=== PATIENT | female | born 1995 | race Caucasian/White ===

== ENCOUNTER → 2020-08-11 13:27 | Outpatient (CLI) | payer OTHER, SELFPAY ==
[2020-08-11 09:43] VITALS: BMI 24.3
[2020-08-15 17:18] LABS: HPV Reflexed? NOT INDICATED
== END ==
PROVIDERS: Visit Provider Obstetrics & Gynecology
DX: Z12.4 Encounter for screening for malignant neoplasm of cervix (principal)
CPT/HCPCS: 88175; G0145

== ENCOUNTER → 2021-09-04 07:39 | Outpatient (CLI) | payer OTHER, SELFPAY ==
--- NOTE | 2021-09-04 07:57 | US_ITS ---
STUDY: ULTRASOUND OF THE FEMALE PELVIS - COMPLETE REASON FOR EXAM: Female, 26 years old. Check IUD placement LMP: 08/07/2021. TECHNIQUE: Transabdominal and Transvaginal TECHNICAL QUALITY: Adequate. COMPARISON: None. FINDINGS: The uterus is anteverted and is in a midline position. The uterus measures 8.8 cm x 5.5 cm x 4.0 cm. Normal uterine cervix. The endometrium measures 2.7 mm in thickness, and is hyperechoic. There is no demonstrated endometrial mass. There is no demonstrated myometrial mass. I.U.D. - The patient does have an I.U.D. The right ovary is visualized. The right ovary measures 4 cm x 2.1 cm x 1.6 cm. There is no right ovarian cyst or ovarian mass. There is no visualized right adnexal mass or complex lesion. There is normal arterial and normal venous vascularity. The left ovary is visualized. The left ovary measures 3.2 cm x 2.9 cm x 2 cm. There is a dominant follicle in the left ovary measuring 1.8 cm x 1.7 cm x 1.4 cm. There is no visualized left adnexal mass or complex lesion. There is normal arterial and normal venous vascularity. Trace amount of free fluid adjacent to the left ovary. The pre void volume of the bladder was 207 ml. US/Transvaginal Non- IMPRESSION: IUD is within the uterus. 1.8 cm x 1.7 cm x 1.4 cm dominant follicle in the left ovary. Electronically Signed: Mario Bahena MD at 13:53 EDT , Service support ,
--- NOTE | 2021-09-04 07:57 | US_ITS ---
STUDY: ULTRASOUND OF THE FEMALE PELVIS - COMPLETE REASON FOR EXAM: Female, 26 years old. Check IUD placement LMP: 08/07/2021. TECHNIQUE: Transabdominal and Transvaginal TECHNICAL QUALITY: Adequate. COMPARISON: None. FINDINGS: The uterus is anteverted and is in a midline position. The uterus measures 8.8 cm x 5.5 cm x 4.0 cm. Normal uterine cervix. The endometrium measures 2.7 mm in thickness, and is hyperechoic. There is no demonstrated endometrial mass. There is no demonstrated myometrial mass. I.U.D. - The patient does have an I.U.D. The right ovary is visualized. The right ovary measures 4 cm x 2.1 cm x 1.6 cm. There is no right ovarian cyst or ovarian mass. There is no visualized right adnexal mass or complex lesion. There is normal arterial and normal venous vascularity. The left ovary is visualized. The left ovary measures 3.2 cm x 2.9 cm x 2 cm. There is a dominant follicle in the left ovary measuring 1.8 cm x 1.7 cm x 1.4 cm. There is no visualized left adnexal mass or complex lesion. There is normal arterial and normal venous vascularity. Trace amount of free fluid adjacent to the left ovary. The pre void volume of the bladder was 207 ml. US/Pelvic (Non ) IMPRESSION: IUD is within the uterus. 1.8 cm x 1.7 cm x 1.4 cm dominant follicle in the left ovary. Electronically Signed: Mario Bahena MD at 13:53 EDT , Service support ,
== END ==
PROVIDERS: Referring Provider Nurse Practitioner Women's Health; Visit Provider Nurse Practitioner Women's Health
DX: N83.02 Follicular cyst of left ovary (principal); R10.2 Pelvic and perineal pain
CPT/HCPCS: 76830; 76856

== ENCOUNTER → 2022-12-20 | Outpatient (CLI) | payer OTHER, SELFPAY ==
[2022-12-27 19:25] LABS: HPV Reflexed? NOT INDICATED
== END | disposition home or self-care (01) ==
LOC: LABSPEC 13:23
PROVIDERS: Referring Provider Obstetrics & Gynecology; Visit Provider Obstetrics & Gynecology
DX: Z12.4 Encounter for screening for malignant neoplasm of cervix (principal)
CPT/HCPCS: 88175; G0145

== ENCOUNTER → 2023-03-17 | Outpatient (CLI) | payer OTHER, SELFPAY ==
[2023-03-17 11:33] LABS: Erythrocyte Sedimentation Rate 7 mm/hr (0-30)
[2023-03-17 11:36] LABS: Absolute Lymphocyte Count 1.63 X10^3/uL (0.83-4.51); Absolute Neutrophil Count 4.2 X10^3/uL (2.0-7.7); Basophil# 0.04 X10^3/uL; Basophil% 0.6 % (0-1); Eosinophil# 0.09 X10^3/uL; Eosinophils% 1.4 % (0-5); Hemoglobin 15.1 g/dL (12.0-15.0); Lymphocyte # 1.63 X10^3/ul (0.83-4.51); Lymphocyte % 25.3 % (19-41); Mean Corp Hgb Conc 34.3 g/dL (32-36); Mean Corpuscular Hgb 31.3 pg (27.0-32.0); Mean Corpuscular Volume 91.3 fL (81-99); Mean Platelet Vol. 9.4 fl (6.2-12.0); Monocyte# 0.49 X10^3/uL; Monocyte% 7.6 % (0-10); NRBC Flagged by Analyzer 0 % (0-5); Neutrophil # 4.18 X10^3/uL (2.7-7.7); Neutrophil % 64.8 % (47-70); Platelet Count 308 K/mm3 (150-450); RBC Distribution Width CV 11.4 % (11.6-14.6); RBC Distribution Width SD 38.4 fl (35.1-43.9); Red Blood Count 4.82 M/mm3 (4.2-5.4); White Blood Count 6.5 K/mm3 (4.4-11.0)
[2023-03-17 12:03] LABS: ALB/GLOB Ratio 1.3 RATIO (0.9-2.4); AST(SGOT) 28 U/L (15-37); Alanine Aminotransfer ALT/SGPT 31 U/L (13-56); Albumin, Serum 4.5 g/dL (3.2-5.0); Alkaline Phosphatase 58 U/L (45-117); Anion Gap 3 (5-15); BUN 14 mg/dL (7-18); BUN/Creat Ratio 17.9 RATIO (10-20); CRP < 2.90 mg/L (0.0-3.0); Calcium,Total 9.8 mg/dL (8.5-10.1); Chloride 106 mmol/L (98-107); Creatinine, Serum 0.78 mg/dL (0.55-1.02); EST Glomerular Filtration Rate 93 mL/min (>60); Est Glom Filt Rate - Afr Amer 112 mL/min (>60); Globulin 3.4 g/dL (2.2-4.2); Glucose 84 mg/dL (74-106); Potassium 3.7 mmol/L (3.5-5.1); Protein, Total 7.9 g/dL (6.4-8.2); Sodium Level 139 mmol/L (136-145)
[2023-03-18 15:08] LABS: Endomysial Antibody IgA Negative (Negative); Immunoglobulin A 161 mg/dL (87-352); t-Transglutaminase IgA <2 U/mL (0-3)
[2023-03-23 00:07] LABS: Anti-Centromere B Ab <0.2 AI (0.0-0.9); Anti-Chromatin <0.2 AI (0.0-0.9); Anti-Jo <0.2 AI (0.0-0.9); Anti-Scleroderma-70 AB 0.3 AI (0.0-0.9); Anti-dsDNA Ab <1 IU/mL (0-9); Beef <0.10 kU/L (Class 0); Chocolate <0.10 kU/L (Class 0); Corn <0.10 kU/L (Class 0); Egg, Whole <0.10 kU/L (Class 0); Milk (Cow) <0.10 kU/L (Class 0); Peanut <0.10 kU/L (Class 0); Pork <0.10 kU/L (Class 0); RNP Ab 0.2 AI (0.0-0.9); SJOGREN'S Anti-SS-A test < 0.2 AI (0.0-0.9); SJOGREN'S Anti-SS-B test < 0.2 AI (0.0-0.9); Smith Ab <0.2 AI (0.0-0.9); Soybean <0.10 kU/L (Class 0); Wheat <0.10 kU/L (Class 0)
== END | disposition home or self-care (01) ==
PROVIDERS: PCP Nurse Practitioner Family; Visit Provider Nurse Practitioner Adult Health
DX: R19.8 Other specified symptoms and signs involving the digestive system and abdomen (principal); R14.0 Abdominal distension (gaseous)
CPT/HCPCS: 36415; 80053; 82784; 83516; 85025; 85652; 86003; 86005; 86140; 86225; 86235; 86255

== ENCOUNTER → 2023-10-27 | Outpatient (CLI) | payer OTHER, SELFPAY ==
[2023-11-01 21:06] LABS: Chlamydia By Nucleic Acid AMP Negative (Negative); Gonococcus By Nucleic Acid AMP Negative (Negative)
== END | disposition home or self-care (01) ==
LOC: LABSPEC 15:40
PROVIDERS: PCP Nurse Practitioner Family; Referring Provider Obstetrics & Gynecology; Visit Provider Obstetrics & Gynecology
DX: Z34.90 Encounter for supervision of normal pregnancy, unspecified, unspecified trimester (principal)
CPT/HCPCS: 87086; 87491; 87591

== ENCOUNTER → 2023-12-22 | Outpatient (CLI) | payer OTHER, SELFPAY ==
[2023-12-22 09:40] LABS: Absolute Lymphocyte Count 1.21 X10^3/uL (0.83-4.51); Absolute Neutrophil Count 7.7 X10^3/uL (2.0-7.7); Basophil# 0.04 X10^3/uL; Basophil% 0.4 % (0-1); Eosinophil# 0.09 X10^3/uL; Eosinophils% 0.9 % (0-5); Hematocrit 36.1 % (37-47); Hemoglobin 12.5 g/dL (12.0-15.0); Lymphocyte # 1.21 X10^3/ul (0.83-4.51); Lymphocyte % 12.3 % (19-41); Mean Corp Hgb Conc 34.6 g/dL (32-36); Mean Corpuscular Hgb 30.5 pg (27.0-32.0); Mean Platelet Vol. 9.2 fl (6.2-12.0); Monocyte# 0.72 X10^3/uL; Monocyte% 7.3 % (0-10); NRBC Flagged by Analyzer 0 % (0-5); Neutrophil # 7.73 X10^3/uL (2.7-7.7); Neutrophil % 78.7 % (47-70); Platelet Count 259 K/mm3 (150-450); RBC Distribution Width SD 38.5 fl (35.1-43.9); White Blood Count 9.8 K/mm3 (4.4-11.0)
[2023-12-22 10:56] LABS: HIV - WCH Non-Reactive (Nonreactive); Hepatitis B Surface Antigen Non-Reactive (Nonreactive); Hepatitis C Antibody Non-Reactive (Nonreactive); Rubella IgG Reactive (Nonreactive); Syphilis Antibodies Non-reactive
== END | disposition home or self-care (01) ==
LOC: PAVLAB 09:06
PROVIDERS: PCP Nurse Practitioner Family; Referring Provider Obstetrics & Gynecology; Visit Provider Obstetrics & Gynecology
DX: Z34.90 Encounter for supervision of normal pregnancy, unspecified, unspecified trimester (principal)
CPT/HCPCS: 36415; 85025; 86703; 86762; 86780; 86803; 86850; 86900; 86901; 87340

== ENCOUNTER → 2024-03-12 | Outpatient (CLI) | payer OTHER, SELFPAY ==
[2024-03-12 08:32] LABS: Absolute Lymphocyte Count 1.19 X10^3/uL (0.83-4.51); Absolute Neutrophil Count 6.7 X10^3/uL (2.0-7.7); Basophil# 0.03 X10^3/uL; Basophil% 0.3 % (0-1); Eosinophil# 0.07 X10^3/uL; Eosinophils% 0.8 % (0-5); Hematocrit 33.7 % (37-47); Hemoglobin 11.5 g/dL (12.0-15.0); Lymphocyte # 1.19 X10^3/ul (0.83-4.51); Lymphocyte % 13.7 % (19-41); Mean Corp Hgb Conc 34.1 g/dL (32-36); Mean Corpuscular Hgb 31.8 pg (27.0-32.0); Mean Corpuscular Volume 93.1 fL (81-99); Mean Platelet Vol. 9.3 fl (6.2-12.0); Monocyte# 0.62 X10^3/uL; Monocyte% 7.1 % (0-10); NRBC Flagged by Analyzer 0 % (0-5); Neutrophil # 6.74 X10^3/uL (2.7-7.7); Neutrophil % 77.4 % (47-70); Platelet Count 224 K/mm3 (150-450); RBC Distribution Width CV 12.8 % (11.6-14.6); RBC Distribution Width SD 43.5 fl (35.1-43.9); Red Blood Count 3.62 M/mm3 (4.2-5.4); White Blood Count 8.7 K/mm3 (4.4-11.0)
[2024-03-12 09:15] LABS: Glucose Challenge Gest 1H 50g 137 mg/dL (70-140)
[2024-03-12 09:33] LABS: HIV - WCH Non-Reactive (Nonreactive); Syphilis Antibodies Non-reactive
== END | disposition home or self-care (01) ==
LOC: PAVLAB 08:05
PROVIDERS: PCP Nurse Practitioner Family; Referring Provider Obstetrics & Gynecology; Visit Provider Obstetrics & Gynecology
DX: O09.90 Supervision of high risk pregnancy, unspecified, unspecified trimester (principal); Z13.1 Encounter for screening for diabetes mellitus; Z3A.00 Weeks of gestation of pregnancy not specified
CPT/HCPCS: 36415; 82950; 85025; 86703; 86780

== ENCOUNTER → 2024-03-21 | Outpatient (CLI) | payer OTHER, SELFPAY ==
[2024-03-21 09:09] LABS: Glucose GTT-Gestation. Fasting 82 mg/dL (<105)
[2024-03-21 09:14] LABS: Glucose GTT-Gestational 1 Hr 125 mg/dL (<190)
[2024-03-21 10:07] LABS: Glucose GTT-Gestational 2 Hr 130 mg/dL (<165)
[2024-03-21 11:08] LABS: Glucose GTT-Gestational 3 Hr 56 L (<145)
== END | disposition home or self-care (01) ==
PROVIDERS: PCP Nurse Practitioner Family; Referring Provider Nurse Practitioner Women's Health; Visit Provider Nurse Practitioner Women's Health
DX: O99.810 Abnormal glucose complicating pregnancy (principal); Z3A.28 28 weeks gestation of pregnancy
CPT/HCPCS: 36415; 82951; 82952

== ENCOUNTER → 2024-05-09 | Outpatient (CLI) | payer OTHER, SELFPAY | END | disposition home or self-care (01) | LOC: LABSPEC 10:40 | PROVIDERS: PCP Nurse Practitioner Family; Referring Provider Advanced Practice Midwife; Visit Provider Advanced Practice Midwife | DX: Z34.00 Encounter for supervision of normal first pregnancy, unspecified trimester (principal) | CPT/HCPCS: 87081 ==

== ENCOUNTER → 2024-05-23 | Outpatient (CLI) | payer OTHER, SELFPAY ==
[2024-05-23 12:30] LABS: ROM Internal Control Test YES-OK TO RESULT pt. (Internal QC); ROM Patient Test Negative (Negative); Record Kit Lot#, ROM+ K1866
== END | disposition home or self-care (01) ==
LOC: LABSPEC 12:03
PROVIDERS: PCP Nurse Practitioner Family; Referring Provider Advanced Practice Midwife; Visit Provider Advanced Practice Midwife
DX: O26.899 Other specified pregnancy related conditions, unspecified trimester (principal); N89.8 Other specified noninflammatory disorders of vagina; Z3A.00 Weeks of gestation of pregnancy not specified
CPT/HCPCS: 84112

== ENCOUNTER 2024-06-07 19:21 | Inpatient (IN) | payer OTHER, SELFPAY ==
[2024-06-07 19:19] VITALS: BMI 31.4
[2024-06-07 19:44] VITALS: BP 138/88; PULSE 109; PULSE 90; O2SAT 98
[2024-06-07] MEDS: 0.9% Saline Lock 10 ML Syringe IV (20:05)
--- NOTE | 2024-06-07 20:10 | HP.PCM.OB_ITS ---
HPI - General General Date of Admission: 06/07/24 HPI Narrative LITZY MONDRAGON, is a 29 F who presents Maternal Data Information LUCIA Calculator Estimated Delivery Date Method Current WG Current Estimate 06/01/24 LMP (Certain) 40w 6d Other Estimates 06/03/24 Ultrasound #1 40w 4d PFSH PFS Medical History Abnormal glucose affecting Herpes genitalis Home Medications ?Medication ?Instructions ?Recorded ?Last Taken ?Type magnesium oxide 500 mg capsule 500 mg PO DAILY 12/20/22 Unknown History multivitamin no.47-iron fum 27 cap PO 10/21/23 Unknown History mg-folate no.1 1 mg-dha 300 mg capsule (PNV-DHA) valacyclovir 500 mg tablet 500 mg PO BID 04/11/24 Unknown History (Valtrex) Allergy/AdvReac Type Severity Reaction Status Date / Time No Known Allergies Allergy Verified 05/31/24 09:53 Family History Sister History of recurrent miscarriages 2 miscarriages- no known cause Grandfather Cancer, Onset Age: 75 Paternal- Pancreatic Uncle Cancer, Onset Age: 60 Maternal- Lung Grandmother Alzheimer's dementia, Onset Age: 80 Paternal Surgical History [place] teeth extracted History of elective Social History adopted: No household members: spouse current occupational status: employed current occupation: [employer]. current occupational exposures/hazards: No pets and animals: No history of recent travel: No sexually active: Yes Smoking Status: Never smoker alcohol intake: current details: occasionally- Not while substance use type: does not use well-balanced diet: daily or most days caffeine: Yes Type: coffee Number of servings: 2 eating out: rarely or never during the past year weight has: remained stable what type of physical activity do you participate in: walking, running and weight training frequency: 3-4 times per week duration: 45-60 minutes/day susanna/cheondoism: Non-Methodist/Independent seatbelt use: always do you feel safe at home: Yes additional social history: - Gary Patient works at [employer] History 2 Elective abortions 1 Hx Para 0 Spontaneous abortions Hx # Term Pregnancies Ectopic pregnancies Hx # Pregnancies Multiple births # of living children 0 Past Pregnancies Del. Date Name GA/Weeks Outcome Route Bth Weight Infant Gen Labor Lgth Anesthesia Del Jamal Provider FOSavage 08/08/17 elective Visit Details Expected Delivery Route/Plan Labor Preferences- CB/BF classes: [] labor support person: [] labor intervention preferences: epidural pain management options preferred: [] cut cord/dad catch: [] : yes PP control planned: [] discussed possible routes of delivery and associated risks: [] special requests: [] Plans Covid status: [] Flu vaccine: declined Tdap vaccine: given Rhogam: [] LARC form signed: [] movement and labor precautions reviewed. Problem list reviewed and updated with the most current plan of care details and appropriate orders placed. Relevant counseling for the gestational age provided. Continue routine care and follow up unless otherwise noted in visit notes/problem list details OB Flowsheet Initial Weight: 144 lb Date -?-?-?-?-?-?-?-?-?-?-?-?- EGA Weight BP Urine Prot -?-?-?-?-?-?-?-?-?-?-?-?- Glucose FHR FuHt Pres Dilation -?-?-?-?-?-?-?-?-?-?-?-?- Effaced St Visit Note 10/27/23 -?-?-?-?-?-?-?-?-?-?-?-?- 8w 6d 144 lb 4 oz (+4 oz) 120/81 -?-?-?-?-?-?-?-?-?-?-?-?- 160 -?-?-?-?-?-?-?-?-?-?-?-?- JV- CRL consiste nt with LMP. declines nipt for now but wants carrier testing. 11/25/23 -?-?-?-?-?-?-?-?-?-?-?-?- 13w 0d 147 lb 6 oz (+3 lb 6 oz) 112/67 Negative -?-?-?-?-?-?-?-?-?-?-?-?- Negative 159 -?-?-?-?-?-?-?-?-?-?-?-?- JV- still needs new ob labs. no complaints today. 12/22/23 -?-?-?-?-?-?-?-?-?-?-?-?- 16w 6d 149 lb (+5 lb) 119/75 Negative -?-?-?-?-?-?-?-?-?-?-?-?- Negative 145 -?-?-?-?-?-?-?-?-?-?-?-?- SM- no vb crampi ng discussed testing options, declined all 01/16/24 -?-?-?-?-?-?-?-?-?-?-?-?- 20w 3d 156 lb (+12 lb) 109/69 Negative -?-?-?-?-?-?-?-?-?-?-?-?- Negative 145 -?-?-?-?-?-?-?-?-?-?-?-?- LC- no vb/crampi ng.anatomy scan completed 02/17/24 -?-?-?-?-?-?-?-?-?-?-?-?- 25w 0d 158 lb 8 oz (+14 lb 8 oz) 112/72 Negative -?-?-?-?-?-?-?-?-?-?-?-?- Negative 140 27 -?-?-?-?-?-?-?-?-?-?-?-?- JV- no lof, vagi nal bleeding, or cramping. no complaints. JV- no lof, vaginal bleeding , or cramping. no complaints. going to [place] this weekend. 03/12/24 -?-?-?-?-?-?-?-?-?-?-?-?- 28w 3d 164 lb 2 oz (+20 lb 2 oz) 108/72 Negative -?-?-?-?-?-?-?-?-?-?-?-?- Negative 135 30 -?-?-?-?-?-?-?-?-?-?-?-?- KW- no vb/lof/ct x. good fm. 28 week labs pending 03/26/24 -?-?-?-?-?-?-?-?-?-?-?-?- 30w 3d 165 lb (+21 lb) 125/76 -?-?-?-?-?-?-?-?-?-?-?-?- 140 31 -?-?-?-?-?-?-?-?-?-?-?-?- KW- no vb/lof/ct x. good fm. CBE classes in April. many questions today 04/11/24 -?-?-?-?-?-?-?-?-?-?-?-?- 32w 5d 170 lb (+26 lb) 101/63 Negative -?-?-?-?-?-?-?-?-?-?-?-?- Negative 135 33 -?-?-?-?-?-?-?-?-?-?-?-?- KW- no vb/lof/ct x. good fm. pepcid for acid reflux. LARC and Tdap today KW- no vb/lof/ctx. good fm. pepcid for acid reflux. LARC and Tdap today. Rx for valtrex for 36 week suppression 04/26/24 -?-?-?-?-?-?-?-?-?-?-?-?- 34w 6d 172 lb (+28 lb) 102/71 Negative -?-?-?-?-?-?-?-?-?-?-?-?- Negative 132 36 Cephalic -?-?-?-?-?-?-?-?-?-?-?-?- KW- no vb/lof/ct x. good fm. CB education classes 05/03/24 -?-?-?-?-?-?-?-?-?-?-?-?- 35w 6d 171 lb 2 oz (+27 lb 2 oz) 112/80 Negative -?-?-?-?-?-?-?-?-?-?-?-?- Negative 135 36 Cephalic -?-?-?-?-?-?-?-?-?-?-?-?- JV- labor prefer ences reviewed. gbs next visit. consider bedside scan to confirm vtx for patient's reassurance. 05/09/24 -?-?-?-?-?-?-?-?-?-?-?-?- 36w 5d 172 lb (+28 lb) 121/79 Negative -?-?-?-?-?-?-?-?-?-?-?-?- Negative 130 37 Cephalic 0 -?-?-?-?-?-?-?-?-?-?-?-?- KW- no vb/lof/ct x. good fm. GBS today KW- no vb/lof/ctx. good fm. GBS today. starting valtrex today 05/16/24 -?-?-?-?-?-?-?-?-?-?-?-?- 37w 5d 174 lb (+30 lb) 121/75 Negative -?-?-?-?-?-?-?-?-?-?-?-?- Negative 135 38 Cephalic 1 -?-?-?-?-?-?-?-?-?-?-?-?- SM- no vb lof go od fm no regular ctx 05/23/24 -?-?-?-?-?-?-?-?-?-?-?-?- 38w 5d 174 lb (+30 lb) 111/74 Negative -?-?-?-?-?-?-?-?-?-?-?-?- Negative 140 39 Cephalic 1 -?-?-?-?-?-?-?-?-?-?-?-?- 60 -2 KW- no vb/ ctx. work in for possible ROM. 05/31/24 -?-?-?-?-?-?-?-?-?-?-?-?- 39w 6d 173 lb 2 oz (+29 lb 2 oz) 118/73 Negative -?-?-?-?-?-?-?-?-?-?-?-?- Negative 145 38 Cephalic 1 -?-?-?-?-?-?-?-?-?-?-?-?- 50 -2 JV- no lof , vaginal bleeding, or dec fm. 41 week IOL set up. Vital Signs Vital Signs Vital Signs: 06/07/24 19:44 06/07/24 19:44 06/07/24 19:44 Pulse Rate 90 109 H Blood Pressure 138/88 H BP Systolic 138 BP Diastolic 88 Pulse Ox 06/07/24 19:44 Pulse Rate Blood Pressure BP Systolic BP Diastolic Pulse Ox 98 Weight Weight: 177 lb 3.2 oz Body Mass Index (BMI) 31.4 Labs Labs Labs: Blood Type O POSITIVE Antibody Screen NEGATIVE Hct 33.7 % (37-47) L Hgb 11.5 g/dL (12.0-15.0) L Pap Smear Negative Syphilis Total Ab Non-reactive Rubella IgG Antibody Reactive (Nonreactive) Hep Bs Antigen Non-Reactive (Nonreactive) Hepatitis C Antibody Non-Reactive (Nonreactive) Chlamydia DNA (FREDO) Negative (Negative) N.gonorrhoeae DNA (FREDO) Negative (Negative) HIV 1&2 Antibody Non-Reactive (Nonreactive) Glucose 1 Hr 50 gm 137 mg/dL (70-140) Gest Glucose Tolerance MG/DL Miscellaneous Test
--- NOTE | 2024-06-07 20:10 | PCM.HP.OB ---
HPI - General General Date of Admission: 06/07/24 HPI Narrative LITZY MONDRAGON, is a 29 F who presents at 41 weeks presents for induction of labor secondary to postdates. Patient has had an uncomplicated without vaginal bleeding loss of fluid admits good movement. She has no active herpetic lesions or symptoms. Maternal Data Information LUCIA Calculator Estimated Delivery Date Method Current WG Current Estimate 06/01/24 LMP (Certain) 41w 0d Other Estimates 06/03/24 Ultrasound #1 40w 5d PFSH PFS Medical History (Updated 06/08/24 @ 07:[address] Maria R Quinonez MD) Abnormal glucose affecting Herpes genitalis Home Medications ?Medication ?Instructions ?Recorded ?Last Taken ?Type multivitamin no.47-iron fum 27 1 cap PO DAILY 10/21/23 06/06/24 08:00 History mg-folate no.1 1 mg-dha 300 mg capsule (PNV-DHA) valacyclovir 500 mg tablet 500 mg PO BID HSV 04/11/24 06/07/24 17:00 History (Valtrex) Allergy/AdvReac Type Severity Reaction Status Date / Time No Known Allergies Allergy Verified 06/07/24 20:25 Family History Sister History of recurrent miscarriages 2 miscarriages- no known cause Grandfather Cancer, Onset Age: 75 Paternal- Pancreatic Uncle Cancer, Onset Age: 60 Maternal- Lung Grandmother Alzheimer's dementia, Onset Age: 80 Paternal Surgical History (Updated 06/07/24 @ 20:36 by Vandana Alfonso) [place] teeth extracted History of elective Social History adopted: No household members: spouse current occupational status: employed current occupation: [employer]. current occupational exposures/hazards: No pets and animals: No history of recent travel: No sexually active: Yes Smoking Status: Never smoker alcohol intake: current details: occasionally- Not while substance use type: does not use well-balanced diet: daily or most days caffeine: Yes Type: coffee Number of servings: 2 eating out: rarely or never during the past year weight has: remained stable what type of physical activity do you participate in: walking, running and weight training frequency: 3-4 times per week duration: 45-60 minutes/day susanna/yarsanism: Non-Hindu/Independent seatbelt use: always do you feel safe at home: Yes additional social history: - Gary Patient works at [employer] History 2 Elective abortions 1 Hx Para 0 Spontaneous abortions Hx # Term Pregnancies Ectopic pregnancies Hx # Pregnancies Multiple births # of living children 0 Past Pregnancies Del. Date Name GA/Weeks Outcome Route Bth Weight Gen Labor Lgth Anesthesia Haim Berry Provider FOB 08/08/17 elective Visit Details Expected Delivery Route/Plan Labor Preferences- CB/BF classes: [] labor support person: [] labor intervention preferences: epidural pain management options preferred: [] cut cord/dad catch: [] : yes PP control planned: [] discussed possible routes of delivery and associated risks: [] special requests: [] Plans Covid status: [] Flu vaccine: declined Tdap vaccine: given Rhogam: [] LARC form signed: [] movement and labor precautions reviewed. Problem list reviewed and updated with the most current plan of care details and appropriate orders placed. Relevant counseling for the gestational age provided. Continue routine care and follow up unless otherwise noted in visit notes/problem list details OB Flowsheet Initial Weight: 144 lb Date <del>?</del> EGA Weight BP Urine Prot <del>?</del> Glucose FHR FuHt Pres Dilation <del>?</del> Effaced St Visit Note 10/27/23 <del>?</del> 8w 6d 144 lb 4 oz (+4 oz) 120/81 <del>?</del> 160 <del>?</del> JV- CRL consistent with LMP. declines nipt for now but wants carrier testing. 11/25/23 <del>?</del> 13w 0d 147 lb 6 oz (+3 lb 6 oz) 112/67 Negative <del>?</del> Negative 159 <del>?</del> JV- still needs new ob labs. no complaints today. 12/22/23 <del>?</del> 16w 6d 149 lb (+5 lb) 119/75 Negative <del>?</del> Negative 145 <del>?</del> SM- no vb cramping discussed testing options, declined all 01/16/24 <del>?</del> 20w 3d 156 lb (+12 lb) 109/69 Negative <del>?</del> Negative 145 <del>?</del> LC- no vb/cramping.anatomy scan completed 02/17/24 <del>?</del> 25w 0d 158 lb 8 oz (+14 lb 8 oz) 112/72 Negative <del>?</del> Negative 140 27 <del>?</del> JV- no lof, vaginal bleeding, or cramping. no complaints. JV- no lof, vaginal bleeding, or cramping. no complaints. going to [place] this weekend. 03/12/24 <del>?</del> 28w 3d 164 lb 2 oz (+20 lb 2 oz) 108/72 Negative <del>?</del> Negative 135 30 <del>?</del> KW- no vb/lof/ctx. good fm. 28 week labs pending 03/26/24 <del>?</del> 30w 3d 165 lb (+21 lb) 125/76 <del>?</del> 140 31 <del>?</del> KW- no vb/lof/ctx. good fm. CBE classes in April. many questions today 04/11/24 <del>?</del> 32w 5d 170 lb (+26 lb) 101/63 Negative <del>?</del> Negative 135 33 <del>?</del> KW- no vb/lof/ctx. good fm. pepcid for acid reflux. LARC and Tdap today KW- no vb/lof/ctx. good fm. pepcid for acid reflux. LARC and Tdap today. Rx for valtrex for 36 week suppression 04/26/24 <del>?</del> 34w 6d 172 lb (+28 lb) 102/71 Negative <del>?</del> Negative 132 36 Cephalic <del>?</del> KW- no vb/lof/ctx. good fm. CB education classes 05/03/24 <del>?</del> 35w 6d 171 lb 2 oz (+27 lb 2 oz) 112/80 Negative <del>?</del> Negative 135 36 Cephalic <del>?</del> JV- labor preferences reviewed. gbs next visit. consider bedside scan to confirm vtx for patient's reassurance. 05/09/24 <del>?</del> 36w 5d 172 lb (+28 lb) 121/79 Negative <del>?</del> Negative 130 37 Cephalic 0 <del>?</del> KW- no vb/lof/ctx. good fm. GBS today KW- no vb/lof/ctx. good fm. GBS today. starting valtrex today 05/16/24 <del>?</del> 37w 5d 174 lb (+30 lb) 121/75 Negative <del>?</del> Negative 135 38 Cephalic 1 <del>?</del> SM- no vb lof good fm no regular ctx 05/23/24 <del>?</del> 38w 5d 174 lb (+30 lb) 111/74 Negative <del>?</del> Negative 140 39 Cephalic 1 <del>?</del> 60 -2 KW- no vb/ctx. work in for possible ROM. 05/31/24 <del>?</del> 39w 6d 173 lb 2 oz (+29 lb 2 oz) 118/73 Negative <del>?</del> Negative 145 38 Cephalic 1 <del>?</del> 50 -2 JV- no lof, vaginal bleeding, or dec fm. 41 week IOL set up. NST FHR Rate Baby A Baseline: 150-160 Variability:: Moderate Accelerations:: 15 x 15 Decelerations:: None NST Reactive:: Yes FHR Category:: Category I (initial cat II isolated variable) Uterine Activity:: irregular ROS Constitutional Constitutional: Reports systems reviewed and no addt'l complaints, except as documented Eyes Eyes: Denies change in vision ENT HEENT: Reports systems reviewed and no addt'l complaints, except as documented; Denies headache(s) Cardiovascular Cardiovascular: Reports systems reviewed and no addt'l complaints, except as documented; Denies chest pain or dyspnea Respiratory/Chest Respiratory/Chest: Reports systems reviewed and no addt'l complaints, except as documented Gastrointestinal Gastrointestinal: Reports systems reviewed and no addt'l complaints, except as documented; Denies abdominal pain Genitourinary Genitourinary: Reports systems reviewed and no addt'l complaints, except as documented, contractions Details: present (irregular) and movement Details: present; Denies dysuria or genital lesions Musculoskeletal Musculoskeletal: Reports systems reviewed and no addt'l complaints, except as documented Neurologic Neurologic: Reports systems reviewed and no addt'l complaints, except as documented Endocrine Endocrinology: Reports systems reviewed and no addt'l complaints, except as documented Vital Signs Vital Signs Vital Signs: 06/07/24 19:44 06/07/24 19:44 06/07/24 19:44 Pulse Rate 90 109 H Blood Pressure 138/88 H BP Systolic 138 BP Diastolic 88 Pulse Ox 06/07/24 19:44 Pulse Rate Blood Pressure BP Systolic BP Diastolic Pulse Ox 98 Weight Weight: 177 lb 3.2 oz Body Mass Index (BMI) 31.4 Physical Exam Const alert, oriented x3, no apparent distress and healthy appearing HEENT normocephalic and moist oral mucous membranes Head and Scalp: atraumatic Neck full ROM, no lymphadenopathy, supple and thyroid normal General: trachea midline Lymph Lymphatic: no lymphadenopathy noted Chest inspection of chest normal Resp normal respiratory effort Cardio regular rate GI normal to inspection, nondistended, normoactive bowel sounds, soft to palpation and non-tender Inspection: gravid external exam normal Manual OB Exam: estimated gestational size appropriate, presentation cephalic, dilated, effaced and station Extremity normal to inspection General Extremity: Negative for edema Skin no rashes or lesions noted Neuro no focal motor deficits and deep tendon reflexes 2+ bilaterally Motor Exam: strength 5/5 throughout and clonus absent Psych mental status grossly normal Labs Labs Labs: Blood Type O POSITIVE Antibody Screen NEGATIVE Hct 38.8 % (37-47) Hgb 13.6 g/dL (12.0-15.0) Pap Smear Negative Syphilis Total Ab Non-reactive Rubella IgG Antibody Reactive (Nonreactive) Hep Bs Antigen Non-Reactive (Nonreactive) Hepatitis C Antibody Non-Reactive (Nonreactive) Chlamydia DNA (FREDO) Negative (Negative) N.gonorrhoeae DNA (FREDO) Negative (Negative) HIV 1&2 Antibody Non-Reactive (Nonreactive) Glucose 1 Hr 50 gm 137 mg/dL (70-140) Gest Glucose Tolerance MG/DL Miscellaneous Test Assessment & Plan (1) Abnormal glucose affecting : COMMENT: passed 3 hr GTT (2) Anxiety: COMMENT: mainly when flying (3) : QUALIFIERS: Weeks of gestation: 39 weeks Qualified Code(s): Z3A.39 - 39 weeks gestation of COMMENT: GBS neg, anatomy nl, declined ntd genetic & carrier testing (4) Supervision of high-risk : COMMENT: PRR, , LUCIA 06/01/23, secret gender Gary (5) Genital herpes simplex virus (HSV) infection in mother affecting childbirth: COMMENT: valtrex at 36 weeks (6) Encounter for induction of labor: (7) Post-term , 40-42 weeks of gestation: PLAN: Plan Patient presents IOL, plan management for with cytotec. Pain management: plans epidural. GBS negative. Management of any complications: none I have reviewed the [facility] and made any clinically relevant updates.
[2024-06-07 20:31] LABS: Absolute Lymphocyte Count 1.75 X10^3/uL (0.83-4.51); Absolute Neutrophil Count 8.5 X10^3/uL (2.0-7.7); Basophil# 0.05 X10^3/uL; Basophil% 0.5 % (0-1); Eosinophil# 0.04 X10^3/uL; Eosinophils% 0.4 % (0-5); Hematocrit 38.8 % (37-47); Hemoglobin 13.6 g/dL (12.0-15.0); Lymphocyte # 1.75 X10^3/ul (0.83-4.51); Lymphocyte % 15.8 % (19-41); Mean Corp Hgb Conc 35.1 g/dL (32-36); Mean Corpuscular Hgb 31.6 pg (27.0-32.0); Mean Platelet Vol. 10.2 fl (6.2-12.0); Monocyte# 0.73 X10^3/uL; Monocyte% 6.6 % (0-10); NRBC Flagged by Analyzer 0 % (0-5); Neutrophil # 8.46 X10^3/uL (2.7-7.7); Platelet Count 213 K/mm3 (150-450); RBC Distribution Width CV 12.6 % (11.6-14.6); RBC Distribution Width SD 41.4 fl (35.1-43.9); Red Blood Count 4.31 M/mm3 (4.2-5.4); White Blood Count 11.1 K/mm3 (4.4-11.0)
[2024-06-07 20:51] VITALS: RESP 20
[2024-06-07 21:17] LABS: Syphilis Antibodies Non-reactive
[2024-06-07] MEDS: LACTATED RINGERS 500 ML 999 ML IV ×2 (21:26→21:58)
[2024-06-07] MEDS: miSOPROStol 25 MCG TABLET VAGINAL (21:55)
[2024-06-07 22:00] VITALS: BP 107/59; PULSE 67; PULSE 72; RESP 18; TEMP 37.2; O2SAT 97
[2024-06-07] MEDS: Lactated Ringers 1,000 ML 50 ML IV (22:29)
[2024-06-08] VITALS (48 sets, daily range): BP systolic 81–150; BP diastolic 45–99; PULSE 56–119; RESP 14–20; TEMP 36.1–37.3; O2SAT 95–100
[2024-06-08] MEDS: Acetaminophen 500 MG Tablet PO ×2 (02:04→18:24)
[2024-06-08] MEDS: miSOPROStol 25 MCG TABLET VAGINAL (02:06)
[2024-06-08] MEDS: Lactated Ringers 1,000 ML 999 ML IV ×3 (07:41→15:30)
--- NOTE | 2024-06-08 07:42 | PN_ITS ---
Progress Note Coping well with contractions current tracing: FHT: 130 Moderate variability reactive no decelerations category I tracing [place]: 1-3 Contractions Membranes:intact SVE:3/70/-2 A/P: Continue with position changes Start pitocin per protocol Epidural per anesthesia AROM after epidural GBS neg Anticipate Dr Quintanilla aware of above assessment and agrees with plan of care Assessment & Plan Assessment/Plan (1) Post-term , 40-42 weeks of gestation: (2) Encounter for induction of labor: (3) Genital herpes simplex virus (HSV) infection in mother affecting childbirth: (4) Supervision of high-risk : (5) : QUALIFIERS: Weeks of gestation: 39 weeks Qualified Code(s): Z3A.39 - 39 weeks gestation of (6) Anxiety: (7) Abnormal glucose affecting : Multi Select Codes Urinary/Genital Urinary/Genital CPT Codes: No Charge
[2024-06-08] MEDS: fentaNYL-bupivacaine (epidural) 100 ML BAG EPIDURAL ×2 (10:55→15:37)
--- NOTE | 2024-06-08 12:07 | PCM.PN.BLA ---
Progress Note comfortable with epidural current tracing: FHT: 130 Moderate variability reactive no decelerations category I tracing [place]: 2-3 Contractions Membranes:AROM 1145 moderate meconium-IUPC placed SVE:/-2 A/P: SVE in 1 hour-if needed replace IUPC If no cervical change start pitocin with Cat 1 strip Continue with position changes Start pitocin per protocol Epidural per anesthesia GBS neg Anticipate Dr Quintanilla aware of above assessment and agrees with plan of care Assessment & Plan Assessment/Plan (1) Post-term , 40-42 weeks of gestation: (2) Encounter for induction of labor: (3) Genital herpes simplex virus (HSV) infection in mother affecting childbirth: (4) Supervision of high-risk : (5) : QUALIFIERS: Weeks of gestation: 39 weeks Qualified Code(s): Z3A.39 - 39 weeks gestation of (6) Anxiety: (7) Abnormal glucose affecting : Multi Select Codes Urinary/Genital Urinary/Genital CPT Codes: No Charge
[2024-06-08] MEDS: Lactated Ringers 1,000 ML 200 ML IV (13:30)
[2024-06-08] MEDS: Oxytocin 15 Units/NS 250ml 15 UNITS/250 ML IV.SOLN 2 UNITS IV (13:30)
--- NOTE | 2024-06-08 15:48 | PN_ITS ---
Progress Note comfortable with epidural current tracing: FHT: 130 Moderate variability reactive occasional variable and late decelerations category II tracing [place]: 3-4 Contractions Membranes:meconium SVE:/- reviewed tracing abnormalities since last note: collaboration with Dr Nunez at this time for Cat II FHT tracing. Resolved with interventions. consider amnioinfusion if becomes persistant A/P: Continue with position changes Titrate pitocin per protocol Epidural per anesthesia GBS neg Anticipate Dr Quintanilla aware of above assessment and agrees with plan of care Assessment & Plan Assessment/Plan (1) Post-term , 40-42 weeks of gestation: (2) Encounter for induction of labor: (3) Genital herpes simplex virus (HSV) infection in mother affecting childbirth: (4) Supervision of high-risk : (5) : QUALIFIERS: Weeks of gestation: 39 weeks Qualified Code(s): Z3A.39 - 39 weeks gestation of (6) Anxiety: (7) Abnormal glucose affecting : Multi Select Codes Urinary/Genital Urinary/Genital CPT Codes: No Charge
[2024-06-08] MEDS: Ondansetron 4 MG/2 ML Vial IV (18:24)
--- NOTE | 2024-06-08 19:29 | PCM.PN.BLA ---
Progress Note Nurse [employer] asked to evaluate tracing and perform pelvic exam. the patient is comfortable on her side. Pitocin is at 4mu/min. Pitocin has not been on most of the day. Nurse reports that she only makes cervical change when the pitocin is on, however everytime they start the pitocin the tracing looks non-reassuring and the pitocin gets turned off. current tracing: FHT: 160's minimal variability, currently having persistent late decelerations- orders to turn off pitocin. [place]: q2-3 min Contractions cx: 6/80/-1. There is blood in the young and suspect OP position. attempt was made to turn the head and a moderate amount of bright red blood appeared A/P: cervix was 5 at noon and changed to 6 at 3 pm, she is at 6cm x 4 1/2 hours and we are unable to start pitocin. recommend delivery at this time.- She has had adequate contractions x 4 hours without cervical change and heart rate at category 2/3. Dx: Arrest of labor and intolerance to labor.
--- NOTE | 2024-06-08 19:34 | PN_ITS ---
Progress Note comfortable with epidural current tracing: FHT: 150 Minimal variability reactive late and variable decelerations category II tracing [place]: 2-3 minute Contractions MVUs approx 200 Membranes:meconium SVE:/1 reviewed tracing abnormalities since last note: collaboration with Dr Nunez at this time for Cat II FHT tracing. 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
[2024-06-08] MEDS: Cefazolin 2 GM in 0.9% Normal Saline (100mL Bag) 100 ML IV (19:36)
--- NOTE | 2024-06-08 20:04 | PLAC_PTH ---
PATIENT: LITZY MONDRAGON LOC: [facility] U#:[id number] AGE/SX: 29/F ROOM: WP006 RE06/07/[address]: Dr. Lanie Nunez DO : 1995 BED: 1 DIS: 06/10/2024 SPEC #: [id number] RECD: 06/09/24 00:56 STATUS: HUANG AMDDIE #: [id number] JOHN: 06/08/24 20:[address]: Lanie Nunez DEPT: SURGICAL PATHOLOGY RECD BY: Nata Hirsch ENTERED: 06/11/24 09:17 SP TYPE: PLACENTA OTHR DR: Dr. Maria R Quinonez, MD Manda Dugan, WEATHERIZATION OPERATIONS MANAGER-Danika Tissues: Placenta, NOS Procedures: Surgery Specimen Level V HEADER OPERATION: Primary section PRE-OP DIAGNOSIS: Post dates TISSUE SUBMITTED: Placenta MICROSCOPIC DIAGNOSIS [place]calf placenta (525 gm): Umbilical cord - Trivascular with no evidence of inflammation. Placental membranes - No evidence of inflammation. Placental disc - Remote infarct, Kishore-Chicho change and intervillous congestion. AM: 06/12/2024 MICROSCOPIC DESCRIPTION Slides are reviewed. GROSS DESCRIPTION SPECIMEN: PLACENTA / CLINICAL INFORMATION: A. Weight: 3.7 kg B. Gestational Age:40 weeks C. Sex: Male PLACENTAL WEIGHT (POST FIXATION): 525 gm PLACENTAL DIMENSIONS: 22.0 x 16.0 x 4.0cm PLACENTAL SHAPE: Usual ovoid PLACENTAL WEIGHT FOR GESTATIONAL AGE: Within 10-99th percentile MEMBRANES - Present A. Insertion: Marginal B. Site of rupture from edge: ruptured at the margin of placental disc C. Color of membrane: Malagon-alvarado D. Abnormalities: None UMBILICAL CORD - Present A. Color: Malagon-alvarado B. Insertion: Paracentral C. Length: 34.0 cm D. Diameter: 1.3 cm E. Number of vessels: Three F. Abnormalities: None PLACENTAL DISC - Present A. Color of surface: Malagon-alvarado B. surface abnormalities: None C. Maternal cotyledons: Part of the placenta is partly disrupted however appears to be complete. D. Attached retro placental clot: No clot E. Cut surface: Dark red and spongy F. Lesions: Sections reveal a malagon indurated lesion measuring 2.5cm in greatest dimension G. Separate clot: Absent SECTIONS SUBMITTED: (6 cassettes) 1. Membrane roll 2. Cord, maternal end 3. Cord, end 4. Placental disc, and maternal surfaces, lesion 5. Placental disc, and maternal surfaces 6. Placental disc, and maternal surfaces CHIQUI/ 06/11/2024 TC:5 CPT: 75948
[2024-06-08] MEDS: Methylergonovine 0.2 MG/ML Ampul IM (20:07)
--- NOTE | 2024-06-08 20:48 | OP.PCM_ITS ---
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: COMMENT: valtrex at 36 weeks (6) Supervision of high-risk : COMMENT: PRR, , LUCIA 06/01/23, secret gender Gary (7) : QUALIFIERS: Weeks of gestation: 39 weeks Qualified Code(s): Z3A.39 - 39 weeks gestation of COMMENT: GBS neg, anatomy nl, declined ntd genetic & carrier testing (8) Anxiety: COMMENT: mainly when flying (9) Abnormal glucose affecting : COMMENT: passed 3 hr GTT Maternal Data Information LUCIA Calculator Estimated Delivery Date Method Current WG Current Estimate 06/01/24 LMP (Certain) 41w 0d Other Estimates 06/03/24 Ultrasound #1 40w 5d Final LUCIA Source: LMP Gestational age: 41 weeks Doctor Who Attended Delivery: Magan Jenkins Details Operative Information Date of Procedure: 06/08/24 Pre-Operative Diagnosis: 29 y/o @ 41 weeks 0 days, arrest of dilation, intolerance to labor Post-Operative Diagnosis: 29 y/o @ 41 weeks 0 days, arrest of dilation, intolerance to labor Classification: YOU Procedure Type: low transverse process controls technician #1: Geno Simmons Type of Anesthesia: Epidural Antibiotic Given: Ancef 2 grams IV x1 and Zithromax 500 mg/5 mL X1 Estimated Blood Loss: 800cc Procedure Start Time: 19:55 Procedure Stop Time: 20:40 Time of Delivery: 20:04 Findings Description of Procedure: Procedure: The patient was brought to the operating room and epidural anesthesia was found to be adequate. She was prepped and draped in the normal sterile fashion and was placed in a dorsal supine position with a leftward tilt. Pfannenstiel skin incision was made with a scalpel and carried through to the underlying layers. The fascia was nicked in the midline and extended laterally using Jiménez scissors. The anterior aspect of the fascia was grasped with Avi clamps and the underlying rectus muscles dissected off using the Metzenbaum scissors. The inferior aspect the fascia was also grasped with Avi clamps and the underlying rectus muscle dissected off with the Metzenbaum scissors. The rectus muscles were in the midline. Peritoneum was entered sharply. The uterus was identified and a bladder blade was inserted into the abdomen. Bladder flap was created off the uterus using Metzenbaum scissors. A transverse incision was made with a scalpel and extended laterally manually. The infant's head was grasped with the help of my certified dental assistant, fundal pressure was applied. The head was not delivering easily so the rectus muscles were trimmed first on the left then the right. More fundal pressure was given and the head still would not delivery. The skin incision was extended and this did not help either. A kiwi vacuum was applied and with one pull the device popped off. Both the certified dental assistant and I applied fundal pressure and the head finally delivered through the uterine incision without difficulty. The baby was found to be floppy and pale colored. The cord was immediately clamped and cut and the was handed off to the awaiting child development associate teacher. The Placenta was delivered manually without difficulty. The uterus was exteriorized and cleared of all clots and debris. Incision was closed with an 0 Vicryl suture in a running locked fashion. Second layer of 1-0 monocryl suture was used in imbricating manner to create excellent closure and hemostasis. The uterus was returned to the abdomen. The gutters were cleared of all clots and debris. The peritoneum was closed in a pursestring pattern using a 3-0 Vicryl suture. This muscle was reapproximated with a 3-0 Vicryl. The fascia was closed with an 0-PDS suture. Subcutaneous tissue layer was closed using a 3-0 vicryl. The skin was closed with a 4-0 Monocryl subcuticular stitch. The skin was also sealed with surgical glue. The patient tolerated the procedure well sponge lap and needle counts were correct at each tissue closure plane and the patient is now being brought to the recovery room in stable condition Presentation: Positive for Vertex Amniotic Fluid Description: Thick meconium Placental Delivery Description: Manual Removal Placenta Disposition: [facility] Cord Vessel Description: 3 Vessels Cord Entanglement: None Cord Gases: ABG and VBG Infant A Gender: Male (1 minute): 2 (5 minute): 8 Delayed Cord Clamping: Yes Complications Risks of Surgery Discussed w/Patient: Anesthesia Risks, Infection, Need for Future C-Sections and Injury to surrounding structure(s) including bowel and bladder Multi Select Codes Urinary/Genital Urinary/Genital CPT Codes: 09331 Delivery [facility]
[2024-06-08] MEDS: Azithromycin 500 MG in Dextrose 5%-Water (250mL Bag) 250 ML 250 MG IV (20:52)
--- NOTE | 2024-06-08 21:02 | PCM.OP.BLANK ---
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 Nunez from the start of the procedure to the end. I performed retraction, suture cutting, suction, and fundal pressure assistance during the procedure. ? See Dr. Nunez's operative note for full details of the procedure. Multi Select Codes Urinary/Genital Urinary/Genital CPT Codes: 86773 Delivery [facility]
[2024-06-08] MEDS: Oxytocin 15 Units/NS 250ml 15 UNITS/250 ML IV.SOLN 83 UNITS IV (21:15)
[2024-06-08] MEDS: Ketorolac 30 MG/ML Syringe IV (22:06)
[2024-06-09] VITALS (19 sets, daily range): BP systolic 87–116; BP diastolic 53–72; PULSE 53–92; RESP 16; TEMP 36.4–36.9; O2SAT 91–100
--- NOTE | 2024-06-09 00:22 | NURSING ---
0000 Pt's pulse ox drops to high 80's, informed DIABETES CLINICAL MANAGER. Pt lungs CTAB and no SOB noted. 2L nasal canula applied and will attempt to wean throughout the night and will notify if it get lower.
[2024-06-09 01:11] LABS: Pathology Specimen OB SEE PATHOLOGY REPORT
[2024-06-09] MEDS: Lactated Ringers 1,000 ML 100 ML IV (01:17)
[2024-06-09] MEDS: Acetaminophen 500 MG Tablet 1000 MG PO ×4 (01:17→18:54)
[2024-06-09] MEDS: Ketorolac 30 MG/ML Syringe IV ×3 (04:22→16:57)
--- NOTE | 2024-06-09 06:20 | NURSING ---
4520 Cristina GAS APPLIANCE SERVICER on unit, informed GAS APPLIANCE SERVICER of pt's pulse ox throughout the night. Pt unable to keep sats up without 2L NC while sleeping, pt now sitting up in bed and sats 94-96 without O2. Will continue to monitor. Pt denies any SOB and lungs are clear.
--- NOTE | 2024-06-09 07:17 | PN.OBGYN_ITS ---
Subjective Subjective Patient doing well without complaints. Tolerating PO. Ambulating and voiding without difficulty. Feeding well. Denies chest pain, shortness of breath, calf pain/swelling, fevers, chills, lightheadedness. Objective Data Objective Data Vital Signs: Vital Signs Temp Pulse Resp BP Pulse Ox O2 Del Method O2 Flow Rate 98.4 F 55 L 16 112/70 93 Nasal Cannula 2 06/09/24 04:49 06/09/24 05:28 06/09/24 05:28 06/09/24 04:49 06/09/24 05:28 06/09/24 05:28 06/09/24 05:28 Oxygen Flow Rate (L/min) 2 Oxygen Delivery Method Nasal Cannula Weight: 177 lb 3.2 oz Body Mass Index (BMI) 31.4 Intake & Output: Intake and Output for Last 24 Hours 06/07/24 06/08/24 06/09/24 23:59 23:59 23:59 Intake Total 1000 / 1000 4827.73 / 4827.73 448.33 / 448.33 Output Total 3500 / 3500 3400 / 3400 Balance 1000 / 1000 1327.73 / 1327.73 -2951.67 / -2951.67 Lab / Micro Data Attestation: I reviewed the patient's lab results. 06/07/24 20:00 ROS Constitutional Constitutional: Reports systems reviewed and no addt'l complaints, except as documented; Denies anorexia or headache(s) Cardiovascular Cardiovascular: Reports systems reviewed and no addt'l complaints, except as documented; Denies dizziness, dyspnea, nausea or tachypnea Respiratory/Chest Respiratory/Chest: Reports systems reviewed and no addt'l complaints, except as documented; Denies cough, dyspnea, shortness of breath at rest or tachypnea Gastrointestinal Gastrointestinal: Reports systems reviewed and no addt'l complaints, except as documented; Denies abdominal pain, constipation or nausea Genitourinary Genitourinary: Reports systems reviewed and no addt'l complaints, except as documented; Denies burning urination, difficulty urinating, dysuria, urinary frequency or urinary incontinence Musculoskeletal Musculoskeletal: Reports systems reviewed and no addt'l complaints, except as documented Integumentary Integumentary: Reports systems reviewed and no addt'l complaints, except as documented Neurologic Neurologic: Reports systems reviewed and no addt'l complaints, except as documented; Denies abnormal speech, dizziness or headache(s) Psychiatric Psychiatric: Reports systems reviewed and no addt'l complaints, except as documented Endocrine Endocrinology: Reports systems reviewed and no addt'l complaints, except as documented Hematologic/Lymphatic Hematologic/Lymphatic: Reports systems reviewed and no addt'l complaints, except as documented Physical Exam Const alert, oriented x3 and no apparent distress Neck full ROM Resp normal respiratory effort, normal air movement and no retractions Effort and Inspection: able to speak in complete sentences and symmetric chest movement GI soft to palpation Inspection: incision intact Bladder / Kidney Exam: bladder normal to palpation Uterus Palpation: uterus fundus firm Extremity normal to inspection and full ROM Psych mental status grossly normal, thought process normal and cooperative Assessment & Plan (1) intolerance to labor, delivered, current hospitalization: (2) delivery delivered: COMMENT: JV PLAN: s/p LTCS PPD # 1 1. routine post care 2. breast feeding- support given 3. rh positive 4. 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
[2024-06-09 07:56] LABS: Hematocrit 33.2 % (37-47); Hemoglobin 11.5 g/dL (12.0-15.0); Mean Corp Hgb Conc 34.6 g/dL (32-36); Mean Corpuscular Hgb 31.6 pg (27.0-32.0); Mean Corpuscular Volume 91.2 fL (81-99); Mean Platelet Vol. 10.3 fl (6.2-12.0); Platelet Count 160 K/mm3 (150-450); RBC Distribution Width CV 13.2 % (11.6-14.6); RBC Distribution Width SD 43.4 fl (35.1-43.9); Red Blood Count 3.64 M/mm3 (4.2-5.4); White Blood Count 16.8 K/mm3 (4.4-11.0)
[2024-06-09] MEDS: 0.9% Saline Lock 10 ML Syringe IV ×2 (09:56→16:57)
[2024-06-09] MEDS: Senna/Docusate Sodium 1 Tablet PO (09:57)
--- NOTE | 2024-06-09 18:53 | NURSING ---
duramorph check completed late due to patient being in shower. documented at 1853.
[2024-06-09] MEDS: Ibuprofen 600 MG Tablet PO (21:52)
[2024-06-10 01:10] VITALS: BP 106/73; PULSE 83; RESP 18; TEMP 36.6; O2SAT 99
[2024-06-10] MEDS: Acetaminophen 500 MG Tablet 1000 MG PO ×2 (01:17→08:30)
[2024-06-10] MEDS: Ibuprofen 600 MG Tablet PO ×2 (03:42→10:13)
[2024-06-10 08:42] VITALS: BP 100/57; PULSE 65; RESP 16; TEMP 36.1; O2SAT 98
[2024-06-10] MEDS: Senna/Docusate Sodium 1 Tablet PO (10:13)
--- NOTE | 2024-06-10 11:57 | DS.PCM_ITS ---
Providers Date of Admission: 06/07/24 Date of Discharge: 06/10/24 Primary Care Physician: MARY JANE Turner Reason For Visit: PRIMARY C SECTION Diagnosis Discharge Diagnosis (1) intolerance to labor, delivered, current hospitalization: Status: Acute Code(s): O77.9 - Labor and delivery complicated by stress, unspecified (2) delivery delivered: Status: Acute Code(s): O82 - Encounter for delivery without indication Plan: s/p LTCS PPD # 2 1. routine post care 2. breast feeding- support given 3. rh positive 4. rubella immune 5. 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: Status: Acute Code(s): O98.32 - Other infections with a predominantly sexual mode of transmission complicating childbirth; A60.09 - Herpesviral infection of other urogenital tract (7) Supervision of high-risk : Status: Acute Code(s): O09.90 - Supervision of high risk , unspecified, unspecified trimester (8) : Status: Acute Code(s): Z34.90 - Encounter for supervision of normal , unspecified, unspecified trimester Qualifiers: Weeks of gestation: 39 weeks Qualified Code(s): Z3A.39 - 39 weeks gestation of (9) Anxiety: Status: Acute Code(s): F41.9 - Anxiety disorder, unspecified (10) Abnormal glucose affecting : Status: Acute Code(s): O99.810 - Abnormal glucose complicating Medications at Discharge Home Medications multivitamin no.47-iron fum 27 mg-folate no.1 1 mg-dha 300 mg capsule (PNV-DHA) 1 cap PO DAILY 10/21/23 valacyclovir 500 mg tablet (Valtrex) 500 mg PO BID HSV 04/11/24 acetaminophen 500 mg tablet 1,000 mg (2 x 500 mg) PO Q6H 7 days #60 tabs 06/10/24 ibuprofen 600 mg tablet 600 mg PO Q6H 7 days #28 tabs 06/10/24 oxycodone 5 mg tablet 5 - 10 mg (1 - 2 x 5 mg) PO Q4H PRN PRN Pain Score 4-10 3 days #10 tabs 06/10/24 Hospital Course Operations section Procedures None Summary of Care Provided Minutes Spent on Discharge: 30 Physical Exam Const alert, oriented x3 and no apparent distress Neck full ROM Resp normal respiratory effort, normal air movement and no retractions Effort and Inspection: able to speak in complete sentences and symmetric chest movement GI soft to palpation Inspection: incision intact Bladder / Kidney Exam: bladder normal to palpation Uterus Palpation: uterus fundus Extremity normal to inspection and full ROM Psych mental status grossly normal, thought process normal and cooperative Weight / BMI Weight Weight: 177 lb 3.2 oz Body Mass Index (BMI) 31.4 ABG / Lab / Microbiology Data 06/09/24 07:40 D/C Instructions Discharge Diet: No restrictions May shower in (days): 0 May resume sexual activity in: 4-6 weeks Weight Bearing Status: Full weight bearing Call your doctor if your incision/area has: Continuous Slow Oozing, Sudden Increased Bleeding, Increased Pain/ Swelling, Increased Redness and Foul Smelling Discharge Call your doctor if you observe: Fever of 101 or Higher and Using more than 1 pad per hour (for 2 hours) Suture Line Care: Avoid Pulling/Pushing and Avoid Pinching/Bending Cleanse incision/area with: Soap & Water and Keep Dressing Clean & Dry Please Follow Up With: Maria R Quinonez MD When: Call [phone] to make an appointment for an incision check in 1-2 weeks. Meaningful Use Info Meaningful Use Meaningful Use Diagnoses (Choose all that apply): None applicable Ischemic Stroke Statin Dosing Therapy Reference: STATIN DOSE THERAPY REFERENCE: * Patients > 75 years receive moderate or high dose statin therapy. * Patients 75 years or YOUNGER should receive HIGH intensity statin dose unless contraindicated. You will be required to document reason for non-treatment if statin daily dose does not meet guidelines. HIGH DOSE STATIN THERAPY DAILY Atorvastatin > than or = to 40 mg Rosuvastatin > than or = to 20 mg Amlodipine + Atorvastatin > than or = to 2.5/40 mg Ezetimibe + Simvastatin 10/80 mg Simvastatin 80mg Discharge Plan Admission Admit Date/Time: 06/07/24 19:21 Attending Provider: Lanie Nunez Primary Care Provider: Manda Dugan NP Discharge Orders/Prescriptions Prescriptions: New acetaminophen 500 mg Tablet 1,000 mg PO Q6H 7 Days Qty: 60 0RF ibuprofen 600 mg Tablet 600 mg PO Q6H 7 Days Qty: 28 0RF oxycodone 5 mg Tablet 5 - 10 mg PO Q4H PRN PRN (Reason: Pain Score 4-10) 3 Days Qty: 10 0RF No Action PNV-DHA 27 mg iron-1 mg -300 mg capsule 1 cap PO DAILY valacyclovir [Valtrex] 500 mg tablet 500 mg PO BID Rx Instructions: one tab twice daily starting at 36 weeks Referrals / Follow Up: Manda Dugan NP, COMMUNITY SERVICES OFFICER-C [Primary Care Provider] - Disposition Disposition (needs filled in before D/C Order can be placed): Home, Self Care Charges/Coding Multi Select Codes Urinary/Genital Urinary/Genital CPT Codes: No Charge
[2024-06-10 12:58] VITALS: BP 115/76; PULSE 79; RESP 16; TEMP 36.1; O2SAT 97
--- NOTE | 2024-06-14 09:57 | NURSING ---
F/up phone call performed, no answer, LVM.
== END 2024-06-10 13:50 | disposition home or self-care (01) | DRG 787 ==
PROVIDERS: Admitting Provider Obstetrics & Gynecology; PCP Nurse Practitioner Family; Visit Provider Obstetrics & Gynecology
DX: O62.1 Secondary uterine inertia (principal); O98.32 Other infections with a predominantly sexual mode of transmission complicating childbirth; F41.9 Anxiety disorder, unspecified; O99.814 Abnormal glucose complicating childbirth; Z3A.41 41 weeks gestation of pregnancy; O99.344 Other mental disorders complicating childbirth; Z37.0 Single live birth; O48.0 Post-term pregnancy; O77.9 Labor and delivery complicated by fetal stress, unspecified; A60.09 Herpesviral infection of other urogenital tract
CPT/HCPCS: 59025; 59050; 85025; 85027; 86780; 86850; 86900; 86901; 88307; 99221; J7120; A4216; G0378; J2405

== ENCOUNTER → 2025-07-30 | Outpatient (CLI) | payer OTHER, SELFPAY ==
[2025-07-30 17:26] LABS: hCG Titer Quant., Serum < 1 mIU/mL (<9 non-preg)
== END | disposition home or self-care (01) ==
PROVIDERS: Advanced Practice Midwife; PCP Nurse Practitioner Family; Referring Provider Obstetrics & Gynecology; Visit Provider Obstetrics & Gynecology
DX: N91.2 Amenorrhea, unspecified (principal)
CPT/HCPCS: 36415; 84702